=== PATIENT | male | born 1950 | race Caucasian/White ===

== ENCOUNTER 2017-01-18 14:56 | Emergency (ER) | payer MEDICARE, OTHER ==
[~2017-01-18] VITALS: Ht 182.8 cm; Wt 131.5 kg
== END 2017-01-18 16:03 | disposition home or self-care (01) ==
LOC: ED 14:56
DX: S61.411A Laceration without foreign body of right hand, initial encounter (principal); Z88.2 Allergy status to sulfonamides; Z91.040 Latex allergy status; W25.XXXA Contact with sharp glass, initial encounter; Y93.89 Activity, other specified; Y92.89 Other specified places as the place of occurrence of the external cause; Y99.8 Other external cause status